=== PATIENT | female | born 1990 | race Caucasian/White ===

== ENCOUNTER 2019-12-18 03:16 | Emergency (ER) | payer SELFPAY ==
[~2019-12-18] VITALS: Ht 170.2 cm; Wt 56.7 kg
--- NOTE | 2019-12-18 03:16 | NUR ---
PT TAKEN TO BED 4
[2019-12-18 03:19] VITALS: BP 117/69
--- NOTE | 2019-12-18 03:20 | NUR ---
PT 29 Y/O FEMALE BIB SELF WITH C/O PELVIC PAIN 10/ X 2 DAYS. PT AAO X 4. PT PRESENTS TEARFUL AND ABLE TO MAKE NEEDS KNOWN. PT DENIES PAINFUL URINATION OR RADIATING FLANK PAIN. PT DENIES N/V/D. ABD IS FLAT, SOFT, AND NONTENDER. PT RESPIRATIONS ARE EVEN AND UNLABORED. DENIES COUGH. AFEBRILE. SINK IS WARM AND DRY TO TOUCH. PT DENIES TAKING PAIN MEDICATIONS AT HOME. PT RESTING IN BED SITTING UPRIGHT. MEDHX: NONE ALLERGIES: NKA
--- NOTE | 2019-12-18 03:38 | NUR ---
Dr. Santana examining patient.
[2019-12-18] MEDS ORDERED: KETOROLAC 60 MG/2 ML VIAL IM ONE (03:45)
[2019-12-18 04:00] VITALS: BP 117/69
--- NOTE | 2019-12-18 04:00 | NUR ---
Patient discharged with v/s stable. Written and verbal after care instructions given and explained. Patient alert, oriented and verbalized understanding of instructions. Ambulatory with steady gait. All questions addressed prior to discharge. ID band removed. Patient advised to follow up with PMD. Rx of CIPRO, MOTRIN given. Patient educated on indication of medication including possible reaction and side effects. Opportunity to ask questions provided and answered.
== END 2019-12-18 04:00 | disposition home or self-care (01) ==
LOC: MED 03:16
DX: N39.0 Urinary tract infection, site not specified (principal)
CPT/HCPCS: 81002; 81025; 96372; 99283; J1885

== ENCOUNTER 2024-01-28 08:02 | Emergency (ER) | payer SELFPAY ==
[~2024-01-28] VITALS: Ht 170.2 cm; Wt 55.3 kg
[2024-01-28 08:25] VITALS: BP 101/56; PULSE 90; RESP 16; TEMP 98; O2SAT 100
[2024-01-28] MEDS ORDERED: IBUP-2213 PO (09:30)
[2024-01-28] MEDS ORDERED: CIPR500T4 PO (09:30)
[2024-01-28] MEDS ORDERED: KEP500 PO (09:34)
[2024-01-28] MEDS: KETOROLAC 60 MG/2 ML VIAL IM ONE (09:47)
[2024-01-28 09:50] VITALS: BP 101/56; PULSE 90; RESP 16; TEMP 98; O2SAT 100
== END 2024-01-28 09:50 | disposition home or self-care (01) ==
LOC: MED 08:02
DX: N39.0 Urinary tract infection, site not specified (principal); F17.200 Nicotine dependence, unspecified, uncomplicated; F15.90 Other stimulant use, unspecified, uncomplicated; Z86.69 Personal history of other diseases of the nervous system and sense organs
CPT/HCPCS: 81002; 81025; 96372; 99283; J1885